=== PATIENT | male | born 1960 | race Caucasian/White ===

== ENCOUNTER → 2017-08-30 | Day surgery (SDC) | payer OTHER, MEDICAID ==
[~2017-08-30] MED LIST: ASPIRIN325 PO; CARDIZEM CD240 MG PO; CEFUROXIME500 MG PO; CIPRO500 MG PO; CIPROFLOXACIN500 M1 PO; COLACE100 MG PO; FLAGYL500 MG PO; FLECAINIDE ACET50 M1 PO; FLEXERIL PO; FLOMAX0.4 MG PO; HYDROCODON-ACE1 EAC7 PO; HYDROCODONE-AP1 EAC6 PO; IBUPROFEN 800800 M1; LISINOPRIL1 GM PO; LISINOPRIL10 MG PO; MIRALAX17 GM PO; NORCO 5-325 TA1 EACH PO; PERCOCET 7.5-31 EACH PO; PRILOSEC 20 MG20 MG PO; PROBIOTIC1 EAC1 PO; PROVENTIL; SINGULAIR 10 MG10 M1 PO; SPIRIVA INH; SYMBICORT160 MCG/4. INH; SYMBICORT80 MCG/4.1 INH; TRAZODONE HCL50 MG PO; VENTOLIN HFA 1818 GM INH; VENTOLIN HFA INH8 GM INH; VERAMYST10 GM NS; ZOFRAN ODT4 MG PO; ZOFRAN4 MG PO
[2017-08-30 12:36] LABS: HEMATOCRIT 45.1 % (42.0-52.0); HEMOGLOBIN 15.2 gm/dL (14.0-18.0); MCH 31.4 pg (26.0-34.0); MCHC 33.6 g/dL (28.0-37.0); MCV 93.3 fL (80.0-100.0); RBC 4.83 mil/uL (4.50-6.00); RDW-CV 13.8 % (10.5-14.5); WBC 8.5 thou/uL (4.0-11.0)
[2017-08-30 12:41] LABS: CALCIUM 8.9 mg/dL (8.5-10.1); CREATININE 1.3 mg/dL (0.6-1.3); POTASSIUM 3.6 mmol/L (3.5-5.1)
--- NOTE | 2017-08-30 15:39 | EKG ---
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1960 Requested By: Rita Johnson Order Number: [id number] Tano MD: Camden Kapadia Measurements Intervals [place] Rate: 65 P: 72 TN: 179 QRS: -20 QRSD: 98 T: 44 QT: 380 QTc: 396 Interpretive Statements Sinus rhythm Borderline left axis deviation Baseline wander in lead(s) V2 Compared to ECG 07/10/2016 16:21:08 No significant changes Electronically Signed On 08-30-2017 15:39:13 CHAINSTITCH ELASTIC ATTACHER by Camden Kapadia [email or web address] <ELECTRONICALLY SIGNED> By: Camden Kapadia MD, LOCATED WITHIN [facility] 08/30/17 1539 1211 10 Camden Kapadia MD, LOCATED [facility] /EPI
--- NOTE | 2017-09-01 11:46 | OP ---
[address] [address] OPERATIVE REPORT Name: KYRA CARVAJAL SR Room: [facility]#: [id number] Admission: 08/30/17 Attend Phys: Rita Johnson DO Discharge: Date of : 60 Report #: [id number] THIS REPORT FOR: //name// CC: Adam Johnson DATE OF SERVICE: 08/30/2017 PREOPERATIVE DIAGNOSES: Recurrent lipoma, left inner thigh and new right anterior medial mid forearm lipoma. POSTOPERATIVE DIAGNOSES: Recurrent lipoma, left inner thigh and new right anterior medial mid forearm lipoma. FINDINGS: Left thigh lipoma measured 9.5 x 6.5 x 3 cm. The incision was 8 x 4 x 2 cm. Forearm lipoma measured 2 x 1 x 0.5 cm. Right forearm incision measured 2 x 0.5 x 0.3 cm, depth of dissection for both the subcutaneous tissue. SURGEON: Rita Johnson DO. COSURGEON: Tyrell Terry, PGY1 and Epifanio Boone, PGY-1. DIGITAL MEDIA ANALYST: Corky Lynn MS3. OPERATION PERFORMED: Excision of lipoma x 2. ANESTHESIA: LMA and local. ESTIMATED BLOOD LOSS: 5 mL. DRAINS: None. SPECIMEN: Lipomas x 2. CONDITION: Stable. DISPOSITION: PACU to home. HISTORY OF PRESENT ILLNESS: The patient is a very pleasant 57-year-old gentleman who presented to my office with a complaint of a new lipoma on his right forearm and a recurrent lipoma on his left thigh. They were both causing him pain and were growing rapidly. He was then consented for excision. Risks discussed included bleeding, infection, pain, scar formation, recurrence and risks of anesthesia. The patient understood these risks and elected to proceed. DESCRIPTION OF PROCEDURE: The patient was brought [place] [address] OPERATIVE REPORT Name: KYRA CARVAJAL SR Room: [facility]#: [id number] Admission: 08/30/17 Attend Phys: Rita Johnson DO Discharge: Date of : 60 Report #: [id number] was laid supine on the operating room table. SCDs were placed on bilateral lower extremities. Ancef was given in the perioperative period. General LMA anesthesia was induced by Anesthesia without difficulty. The patient was placed in stirrups left thigh and right forearm were prepped and draped in standard sterile fashion. Timeout was performed to verify the patient and procedure. A 10 mL of 0.5% Marcaine were injected over both lipomas. On the right forearm, a 2 cm incision was made using 15 blade. Cautery was used for hemostasis. The lipoma was encountered directly under the skin. It was dissected free using a combination of blunt and cautery dissection, that dissection was subcutaneous tissue. Specimen measured 2 x 1 x 0.5 cm. It was then handed off. Hemostasis was assured. Wound was closed in a layered fashion using deep and superficial stitches of 3-0 Vicryl in inverted interrupted fashion. Skin was closed with a running 4-0 Monocryl. We then turned our attention to the left thigh and an 8 x 4 cm elliptical incision was made in the area of the palpable lipoma. Care was taken to include the previous incision. Cautery was used for hemostasis. Lipoma was again encountered directly under the skin. It was dissected free using a combination of blunt and cautery dissection. Depth of dissection was subcutaneous tissue. The mass was handed off. It measured 9.5 x 6.5 x 3 cm. Hemostasis was assured. Wound was then closed in a layered fashion using deep and superficial stitches of 3-0 Vicryl in inverted interrupted fashion. Skin was closed with running 4-0 Monocryl. A total of 30 mL of 0.5% Marcaine were used to anesthetize the wounds. Wounds were then cleansed and covered with Mastisol, Steri-Strips, 4 x 4's, and a Tegaderm. The patient was then allowed to awake from anesthesia, was extubated and transported to the recovery room with no further difficulties. Counts were correct at the conclusion of the case. <ELECTRONICALLY SIGNED> By: Rita Johnson DO 09/01/17 1146 1453 1551Cchanell Johnson DO /nt
--- NOTE | 2017-09-03 15:35 | S ---
[place] [address] SURGICAL PATH RPT PROCEDURE Name: KYRA CABRERA Room: [facility]#: [id number] Admission: 08/30/17 Date of : 60 Discharge: Report #: [id number] Path Case #: [id number] PATHOLOGY REPORT COLLECTION DATE: 08/30/2017 RECEIVED DATE: 08/31/2017 SUBMITTING PHYS: Dr. Rita Johnson OTHER PHYS: Dr. Adam Dixon SPECIMEN(S) RECEIVED: A.Right forearm mass/lipoma B.Left posterior thigh mass/lipoma * * * * * * * * * * * * FINAL DIAGNOSIS: A. Fibroadipose tissue "right forearm mass/lipoma": - Lobulated fibroadipose tissue consistent with a lipoma. B. Fibroadipose tissue "left posterior thigh mass/lipoma": - Mature lobulated fibroadipose tissue consistent with a lipoma. - Focal fat necrosis. COMMENT: This case is also reviewed by Dr. Vannessa Salgado (SHA:pit; 09/03/2017) PATHOLOGIST: Fabian Byrne M.D. REPORT ELECTRONICALLY SIGNED BY: Fabian Byrne M.D. DATE/TIME: 09/03/2017 15:34 * * * * * * * * * * * * GROSS PATHOLOGY: A. Received in formalin labeled "Kyra Cabrera, right forearm mass" and consists of a thinly encapsulated, oval, glistening, and yellow orange fragment of fat measuring 2.0 x 1.0 x 0.6 cm. The specimen is serially transversely sectioned and entirely submitted as A1. B. Received in formalin labeled "Kyra Cabrera, left posterior thigh mass" and consists of a lobulated, thinly encapsulated, glistening, and yellow orange fatty mass measuring 8.0 x 6.0 x 4.2 cm. There is a segment of cobb skin at one surface measuring 5.5 x 1.7 cm. The skin surface shows a possible cicatrix. The fatty mass is inked and sectioning reveals possible and minimal focal fat necrosis deep to the epidermis. The remaining cut surfaces are glistening, yellow orange, and lobulated. Certified Scrum Master sections are submitted B1-B6. (ASHLEE; 08/31/2017) CLINICAL HISTORY: [place] [address] SURGICAL PATH RPT PROCEDURE Name: KYRA CABRERA Room: [facility]#: [id number] Admission: 08/30/17 Date of : 60 Discharge: Report #: [id number] Path Case #: [id number] Mass on left thigh and right forearm INITIAL CPT CODE(S): A; 20945 B; 08244 Professional services performed by [facility] at [address] [address] Technical services performed by [facility] at [address] [place] [address]., [address] [address]. [facility] [address] [address] PHONE: [phone] DIRECTOR: Ata Mejia M.D. * * * END OF REPORT * * *
== END | disposition home or self-care (01) ==
LOC: M.SUR 09:07
PROVIDERS: Surgery
DX: D17.24 Benign lipomatous neoplasm of skin and subcutaneous tissue of left leg (principal); D17.21 Benign lipomatous neoplasm of skin and subcutaneous tissue of right arm; Z88.0 Allergy status to penicillin; Z88.6 Allergy status to analgesic agent; Z88.8 Allergy status to other drugs, medicaments and biological substances; Z79.891 Long term (current) use of opiate analgesic; Z79.899 Other long term (current) drug therapy

== ENCOUNTER 2018-05-23 08:32 | Inpatient (IN) | payer OTHER, MEDICAID ==
[~2018-05-23] VITALS: Ht 175.3 cm; Wt 101.6 kg
[2018-05-23 08:39] VITALS: BP 141/79
[2018-05-23] MEDS ORDERED: PROAIR HFA8.5 GM (08:58)
[2018-05-23] MEDS ORDERED: TRAZODONE HCL50 MG PO (08:58)
[2018-05-23 09:27] LABS: HEMATOCRIT 46.6 % (42.0-52.0); HEMOGLOBIN 15.4 gm/dL (14.0-18.0); MCH 31.1 pg (26.0-34.0); MCHC 33.1 g/dL (28.0-37.0); MPV 8.7 fl. (7.2-11.1); NUCLEATED RBCS 0 /100WBC; PLATELET COUNT* 321 thou/uL (150-400); RBC 4.96 mil/uL (4.50-6.00); RDW-CV 13.7 % (10.5-14.5); WBC 11.2 thou/uL (4.0-11.0)
[2018-05-23 09:42] LABS: ANION GAP 12 mmol/L (7-16); BUN 15 mg/dL (7-18); CALCIUM 9.3 mg/dL (8.5-10.1); CHLORIDE 100 mmol/L (98-107); CO2 24 mmol/L (21-32); CREATININE 1.3 mg/dL (0.6-1.3); GLUCOSE 99 mg/dL (70-99); POTASSIUM 3.7 mmol/L (3.5-5.1); SODIUM 136 mmol/L (136-145)
[2018-05-23 09:50] LABS: ALKALINE PHOSPHATASE 68 U/L (46-116); SGOT 20 U/L (15-37); SGPT 25 U/L (30-65); TOTAL BILIRUBIN 0.4 mg/dL (<0.1-1.0); TOTAL PROTEIN 7.9 g/dL (6.4-8.2); TROPONIN-I LEVEL <0.06 ng/mL (<0.06)
[2018-05-23 09:53] LABS: ABSOLUTE EOSINOPHILS 1.1 thou/uL (0.0-0.7); ABSOLUTE LYMPHOCYTES 3.7 thou/uL (0.8-5.3); ABSOLUTE MONOCYTES 1.1 thou/uL (0.0-1.2); ABSOLUTE NEUTROPHILS 5.3 thou/uL (1.6-8.1); ANISOCYTOSIS 1+; PLATELET ESTIMATE ADEQUATE; POIKILOCYTOSIS 1+
[2018-05-23 10:02] LABS: APTT 26.7 Seconds (25.0-31.3); PROTIME 10.3 Seconds (9.20-11.50)
[2018-05-23 10:38] LABS: BE -1.7 mmol/L (-2 to +3); HCO3 21.3 mmol/L (22.0-26.0); PCO2 31.8 mmHg (35.0-45.0); PO2 85.9 mmHg (75.0-100.0); pH 7.444 (7.340-7.450)
[2018-05-23 13:00] VITALS: BP 137/82
[2018-05-23 15:53] VITALS: BP 129/66
--- NOTE | 2018-05-23 17:08 | NUR ---
PT ARRIVED ON UNIT AT 1311. PT AMBULATED TO BED WITH CANE AND NO DIFFICULTY. PT ON ROOM AIR. VSS. ADMISSION COMPLETE. CARDIOLOGY SAW PT, FIRST PART OF STRESS TEST DONE TODAY. PT TO BE NPO AFTER MIDNIGHT WITH NO CAFFIENE. WILL CONTINUE TO MONITOR.
[2018-05-23 20:00] VITALS: BP 137/81
[2018-05-24] VITALS: BP 126/72
[2018-05-24 04:00] VITALS: BP 124/73
--- NOTE | 2018-05-24 04:31 | NUR ---
ASSUMED PT CARE @ 193. A+O X4. PT GIVEN TYLENOL FOR RIB PAIN W COUGH. EFFECTIVE. NPO @ MIDNIGHT FOR CARDIOLOGY CONSULT IN AM. NO OTHRE CONCERNS REPORTED. SEE CHARTING AND EMAR. CALL LIGHT AT BEDSIDE. HOURLY ROUNDING FOR SAFETY.
[2018-05-24 05:09] LABS: ABSOLUTE LYMPHOCYTES 0.9 thou/uL (0.8-5.3); ABSOLUTE MONOCYTES 0.2 thou/uL (0.0-1.2); BASOPHILS 0.2 %; HEMATOCRIT 46.1 % (42.0-52.0); HEMOGLOBIN 15.3 gm/dL (14.0-18.0); LYMPHOCYTES 4.5 %; MCHC 33.2 g/dL (28.0-37.0); MCV 93.4 fL (80.0-100.0); MONOCYTES 0.8 %; MPV 8.5 fl. (7.2-11.1); NUCLEATED RBCS 0 /100WBC; PLATELET COUNT* 327 thou/uL (150-400); POLYS 94.5 %; RBC 4.93 mil/uL (4.50-6.00); RDW-CV 13.3 % (10.5-14.5)
[2018-05-24 05:27] LABS: CALCIUM 9.6 mg/dL (8.5-10.1); CREATININE 1.5 mg/dL (0.6-1.3)
--- NOTE | 2018-05-24 06:50 | NUR ---
PT C/O CHEST/RIB DISCOMFORT W COUGH AND POSTION CHANGE. PT ALSO C/O "R JAW PAIN FOR 4-5 SECONDS," R HEAD PAIN AND R EYE BLURRY VISION. PT ALSO REPORTED HE USUALLY DRINKS 6 10CUP POTS OF COFFEE A DAY AND HASNT HAD ANY CAFFINE IN 24+ HRS. NOTIFIED CHARGE NURSE AND DAY SHIFT NURSE. AND INSTRUCTED PATIENT TO NOTIFY DR TODAY. PT DENIED STROKE SYMPTOMS AND NONE OBSERVED.
--- NOTE | 2018-05-24 07:15 | NUR ---
ASSUMED CARE OF PT ASSESSED AND DOCUMENTED. PT ON CARDIAC MONITER TRACING ST HR 122. PT IS A&O WITH NO C/O PAIN. WSS WNL. PT IS ON FALL PRECAUTIONS PER FACILITY PROTOCOL. PT IS AFEBRILE AND OM ROOM AIR. BED IS IN LOW POSTION CALL LIGHT IS IN REACH. PT IS NPO FOR TESTING.
[2018-05-24 08:00] VITALS: BP 118/77
--- NOTE | 2018-05-24 09:28 | 2DMMODE ---
[place] [address] 2 D/M-MODE ECHOCARDIOGRAM Name: KYRA CARVAJAL Celina ZAMBRANO Room: [address] IN [facility]#: [id number] Admission: 05/23/18 Attend Phys: Maynor Munguia, Discharge: Date of : 60 Date of Service: 05/24/18 0927 Report #: [id number] THIS REPORT FOR: //name// APPROVED REPORT Study performed: 05/23/2018 15:14:06 EXAM: Comprehensive 2D, Doppler, and color-flow Echocardiogram Patient Location: In-Patient Room #: 200 Status: routine BSA: 2.18 HR: 71 bpm BP: 137/82 mmHg Rhythm: NSR Other Information Study Quality: Good 2D Dimensions IVSd: 11.42 (7-11mm) LVOT Diam: 19.72 (18-24mm) LVDd: 44.28 mm PWd: 10.02 (7-11mm) Ascending Ao: 28.04 (22-36mm) LVDs: 26.36 (25-40mm) Aortic Root: 30.28 mm Volumes Left Atrial Volume (Systole) LA ESV Index: 13.30 mL/m2 Aortic Valve AoV Peak Lei.: 1.42 m/s AO Peak Gr.: 8.04 mmHg LVOT Max P.04 mmHg AO Mean Gr.: 4.46 mmHg LVOT Mean P.76 mmHg LVOT Max V: 1.42 m/s AO V2 VTI: 25.23 cm LVOT Mean V: 0.89 m/s TYRON (VTI): 3.09 cm2 LVOT V1 VTI: 25.56 cm Mitral Valve E/A Ratio: 1.21 MV Decel. Time: 223.77 ms MV E Max Lei.: 0.76 m/s MV PHT: 64.89 ms MVA (PHT): 3.39 [place]2 [place] [address] 2 D/M-MODE ECHOCARDIOGRAM Name: KYRA CARVAJAL Room: [address] IN ..#: [id number] Admission: 05/23/18 Attend Phys: Maynor Munguia, Discharge: Date of : 60 Date of Service: 05/24/18 0927 Report #: [id number] TDI E/Lateral E': 5.43 E/Medial E': 6.91 Medial E' Lei.: 0.11 m/s Lateral E' Lei.: 0.14 m/s Pulmonary Valve PV Peak Lei.: 2.00 m/s PV Peak Gr.: 15.97 mmHg Left Ventricle The left ventricle is normal size. There is normal LV segmental wall motion. There is normal left ventricular wall thickness. Left ventricular systolic function is normal. The left ventricular ejection fraction is within the normal range. LVEF is 60%. The left ventricular diastolic function is normal. Right Ventricle The right ventricle is normal size. The right ventricular systolic function is normal. Atria The left atrium size is normal. The right atrium size is normal. Aortic Valve The aortic valve is normal in structure. No aortic regurgitation is present. There is no aortic valvular stenosis. Mitral Valve The mitral valve is normal in structure. There is no mitral valve regurgitation noted. No evidence of mitral valve stenosis. Tricuspid Valve The tricuspid valve is normal in structure. Unable to assess PA pressure. Trace tricuspid regurgitation. Pulmonic Valve The pulmonary valve is normal in structure. There is no pulmonic valvular regurgitation. Great Vessels The aortic root is normal in size. IVC is normal in size and collapses >50% with inspiration. Pericardium There is [place] [address] 2 D/M-MODE ECHOCARDIOGRAM Name: KYRA CARVAJAL Room: [address] [place] [facility]#: [id number] Admission: 05/23/18 Attend Phys: Maynor Munguia, Discharge: Date of : 60 Date of Service: 05/24/18 0927 Report #: [id number] <Conclusion> The left ventricle is normal size. There is normal left ventricular wall thickness. Left ventricular systolic function is normal. The left ventricular ejection fraction is within the normal range. LVEF is 60%. The left ventricular diastolic function is normal. The right ventricle is normal size. The left atrium size is normal. The aortic valve is normal in structure. The mitral valve is normal in structure. The tricuspid valve is normal in structure. IVC is normal in size and collapses >50% with inspiration. There is no pericardial effusion. There is normal LV segmental wall motion. <ELECTRONICALLY SIGNED> By: Brennon Schrader MD, FACC 05/24/18926 6 6 Brennon Schrader MD, FACC /INF
[2018-05-24 12:00] VITALS: BP 118/75
--- NOTE | 2018-05-24 15:36 | NUR ---
Pt is A&O. Resides at home with his . Independent with ADLs. Pt has a walker and cane that he can use for mobility. Hx of [facility]. No hx of skilled. Goal is [place] at [place], following for disposition.
[2018-05-24 16:00] VITALS: BP 145/75
--- NOTE | 2018-05-24 16:44 | CARDNUC ---
[place] [address] CARDIAC NUCLEAR IMAGING REPORT Name: SUNDAYXUANKYRAMALACHI Patrick SR Room: [address] IN [facility]#: [id number] Admission: 05/23/18 Attend Phys: Maynor Munguia, Discharge: Date of : 60 Date of Service: 05/24/18 1644 Report #: [id number] THIS REPORT FOR: //name// APPROVED REPORT Imaging Protocol: Rest Tc-99m/Stress Tc-99m 2 days Study performed: 05/23/2018 13:44:00 Indication: Chest pain, Atrial Fibrillation Patient Location: In-Patient Room #: 200 Stress Tech: Seema Yusuf Stress Nurse: Terrie Ricardo RN NM Tech:CARMEL Clemons Ht: 5 ft 9 in Wt: 228 lbs BSA: 2.18 m2 BMI: 33.66 Medical History Medical History: a fib, hypertension Medications: diltiazem, lisinopril, enoxaparin Allergies: penicillin, codeine, tramadol Cardiac Risk Factors: age, hypertension, family hx Previous Cardiac Procedures: none Exercise History: Indeterminate Resting Data Rest SPECT myocardial perfusion imaging was performed in supine position 30 minutes following the intravenous injection of 42.0 mCi of Tc-99m Sestamibi. Time of rest injection: 1350 Date: 05/23/2018 Time of rest imagin The images were gated to evaluate regional wall motion and calculate left ventricular ejection fraction. Administration Route: IV Pharmacologic Stress Pharmacologic stress test was performed by injecting Regadenoson 0.4 mg IV push over 10-15 seconds immediately followed by the intravenous injection of 36.8 mCi of Tc-99m Sestamibi. Time of stress injection: 0955 Date: 05/24/2018 Time of stress imagin Administration Route: IV Gated Stress SPECT was performed 40 minutes after [place] [address] CARDIAC NUCLEAR IMAGING REPORT Name: KYRA CARVAJAL Room: [address]#: [id number] Admission: 05/23/18 Attend Phys: Maynor Munguia, Discharge: Date of : 60 Date of Service: 05/24/18 1644 Report #: [id number] The images were gated to evaluate regional wall motion and calculate left ventricular ejection fraction. Prone imaging was performed. Stress Test Details Stress Test: Pharmacologic stress testing performed using 0.4 mg of regadenoson per 5 mL given IV over 10 seconds. Reason for pharmacologic stress test: physical limitation. HR Max Heart Rate (APMHR): 163 bpm Resting HR: 120 bpm Target HR (85% APMHR): 138 bpm Max HR Achieved: 129 bpm % of APMHR: 79 Recovery HR: 114 bpm HR response to stress: Normal HR response to stress BP Resting BP: 106/65 mmHg Max BP: 114/72 mmHg Recovery BP: 122/69 mmHg BP response to stress: Normal blood pressure response to stress. ECG Resting ECG: nsr poor R wave progression Stress ECG: Sinus Rhythm ST Change: none Recovery ECG: NSR no stt abn Recovery ST Change: None Clinical Reason for Termination: Completed protocol Stress Symptoms: None Exercise duration: 0 min sec Exercise capacity: 1 METs Nurse Comments pt given an 500 bolus of normal saline for low bp. Pt unable to walk on treadmill due to generalized weakness Stress ECG Conclusion negative Study Quality Study: Good Artifact: [place] [address] CARDIAC NUCLEAR IMAGING REPORT Name: KYRA CARVAJAL Room: [address]#: [id number] Admission: 05/23/18 Attend Phys: Maynor Munguia, Discharge: Date of : 60 Date of Service: 05/24/18 1644 Report #: [id number] Perfusion Review of rest data reveals normal perfusion, without perfusion defects.Imaging obtained following vasodilator stress demonstrate a similar, uniform uptake of tracer without defects. Prone imaging was normal. LVEDV is normal.No segental wall motion abnormality seen. Images were reviewed using [employer]. Wall Motion normal all segments Nuclear Conclusion ECG Findings: negative for ischemia Clinical Findings: negative for ischemia Nuclear Findings: negative for ischemia Exercise Capacity: not assessed Left Ventricular Function: normal Risk Study: low Negative perfusion nuclear stress test for ischemia /infarct. Normal LV function <Conclusion> negative <ELECTRONICALLY SIGNED> By: Jose Mccormick MD, FACC 05/24/181643 43 43 Jose Mccormick MD, FACC /INF
--- NOTE | 2018-05-24 17:26 | NUR ---
PT HAS RESTED IN HIS ROOM AND VISITED WITH FAMILY. HE HAS HAD NO C/O PAIN OR DISCOMFORT. PT HAD A STRESS TEST WHICH CARDIO NURSE AYLA REPORTED NORMAL AND SHE HAS SIGNED OFF. PT HAS HAD NO S OR SX OF ADVERSE REACTION TO ABT, EDUCATION GIVEN. HOURLY ROUNDING COMPLETE.
[2018-05-24 19:30] VITALS: BP 119/63
[2018-05-25 00:40] VITALS: BP 126/62
[2018-05-25 04:29] VITALS: BP 138/87
[2018-05-25 04:46] LABS: ABSOLUTE LYMPHOCYTES 1.7 thou/uL (0.8-5.3); ABSOLUTE MONOCYTES 1.7 thou/uL (0.0-1.2); ABSOLUTE NEUTROPHILS 25.9 thou/uL (1.6-8.1); BASOPHILS 0.1 %; HEMATOCRIT 43.8 % (42.0-52.0); HEMOGLOBIN 14.5 gm/dL (14.0-18.0); LYMPHOCYTES 5.8 %; MONOCYTES 5.8 %; MPV 8.3 fl. (7.2-11.1); NUCLEATED RBCS 0 /100WBC; PLATELET COUNT* 352 thou/uL (150-400); POLYS 88.3 %; RBC 4.66 mil/uL (4.50-6.00); RDW-CV 13.7 % (10.5-14.5); WBC 29.3 thou/uL (4.0-11.0)
[2018-05-25 04:54] VITALS: BP 115/61
[2018-05-25 05:02] LABS: ALBUMIN 3.9 g/dL (3.4-5.0); CALCIUM 9.1 mg/dL (8.5-10.1); CREATININE 1.4 mg/dL (0.6-1.3); POTASSIUM 4.8 mmol/L (3.5-5.1); TOTAL BILIRUBIN 0.4 mg/dL (<0.1-1.0); TOTAL PROTEIN 7.5 g/dL (6.4-8.2)
--- NOTE | 2018-05-25 06:54 | NUR ---
VITALS WNL. PT HAD X3 EMISIS THROUGH THE NIGHT, MEDICATION GIVEN STATUS IMPROVED. SEE. MAR. SEE CHARTING. FALL PRECAUTIONS IN PLACE. HOURLY ROUNDING FOR SAFETY.
--- NOTE | 2018-05-25 07:15 | NUR ---
CHANGE OF SHIFT BEDSIDE REPORT GIVEN PATIENT SEEN IN BED WATCHING TV ASSUMED APTIENT CARE
[2018-05-25 08:00] VITALS: BP 135/78
[2018-05-25] MEDS ORDERED: PROTONIX40 M1 PO (11:17)
[2018-05-25] MEDS ORDERED: DOXYCYCLINE 10100 MG PO (11:29)
[2018-05-25] MEDS ORDERED: PREDNISONE 10 M10 MG PO (11:31)
[2018-05-25 11:59] VITALS: BP 115/71
--- NOTE | 2018-05-25 13:30 | NUR ---
DISCHARGE TO HOME ALL DC INSTRUCTIONS GIVEN AND ACKNOWLEDGED AND SIGNED COPIES GIVEN IV AND HEART MONITOR REMOVED PERSONAL BELONGINGS RETURNED ASSISTED OUT VIA WC GOOD CONDITION TO WAITING CAR
== END 2018-05-25 13:30 | disposition home or self-care (01) | DRG 177 ==
LOC: M.ERS 08:32 → M.2W 12:06 → M.TBA-ER 12:06 → M.2W 13:11
PROVIDERS: Personal Emergency Response Attendant; ADMIT Internal Medicine
DX: J15.6 Pneumonia due to other Gram-negative bacteria (principal); I50.31 Acute diastolic (congestive) heart failure; J44.1 Chronic obstructive pulmonary disease with (acute) exacerbation; J44.0 Chronic obstructive pulmonary disease with (acute) lower respiratory infection; J20.9 Acute bronchitis, unspecified; Z96.652 Presence of left artificial knee joint; I48.2 Chronic atrial fibrillation; Z90.49 Acquired absence of other specified parts of digestive tract; Z98.42 Cataract extraction status, left eye; Z98.41 Cataract extraction status, right eye; Z88.6 Allergy status to analgesic agent; Z88.0 Allergy status to penicillin; Z88.8 Allergy status to other drugs, medicaments and biological substances; Z83.6 Family history of other diseases of the respiratory system; Z87.891 Personal history of nicotine dependence

== ENCOUNTER → 2019-10-02 | Outpatient (CLI) | payer OTHER, MEDICAID ==
[~2019-10-02] MED LIST changes: +DOXYCYCLINE 10100 MG PO; +PREDNISONE 10 M10 MG PO; +PROAIR HFA8.5 GM; +PROTONIX40 M1 PO
[2019-10-02 16:52] LABS: CALCIUM 8.7 mg/dL (8.5-10.1); CREATININE 1.1 mg/dL (0.6-1.3)
== END ==
LOC: M.LAB 15:21
PROVIDERS: Internal Medicine Pulmonary Disease
DX: J98.4 Other disorders of lung (principal); I50.9 Heart failure, unspecified

== ENCOUNTER → 2020-08-24 | Outpatient (CLI) | payer OTHER, MEDICAID ==
[~2020-08-24] MED LIST changes: +BREZTRI AEROS10.7 GM INH; +OMEPRAZOLE40 MG PO; +[UNRECOGNIZED DRUG - REMARK] INH
[2020-08-24 10:19] LABS: HEMATOCRIT 43.9 % (42.0-52.0); HEMOGLOBIN 14.7 gm/dL (14.0-18.0); MCH 32.4 pg (26.0-34.0); MCHC 33.6 g/dL (28.0-37.0); MCV 96.5 fL (80.0-100.0); MPV 7.7 fl. (7.2-11.1); RBC 4.54 mil/uL (4.50-6.00); RDW-CV 13.3 % (10.5-14.5); WBC 11.3 thou/uL (4.0-11.0)
[2020-08-24 10:47] LABS: ALBUMIN 4.1 g/dL (3.4-5.0); CALCIUM 9.1 mg/dL (8.5-10.1); CREATININE 1.1 mg/dL (0.6-1.3); POTASSIUM 3.9 mmol/L (3.5-5.1); TOTAL BILIRUBIN 0.2 mg/dL (<0.1-1.0); TOTAL PROTEIN 7.1 g/dL (6.4-8.2)
--- NOTE | 2020-08-24 12:51 | EKG ---
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
== END ==
LOC: M.LAB 10:00
PROVIDERS: ATTEND Orthopaedic Surgery
DX: Z01.812 Encounter for preprocedural laboratory examination (principal); Z20.822 Contact with and (suspected) exposure to COVID-19; M17.11 Unilateral primary osteoarthritis, right knee; R00.1 Bradycardia, unspecified

== ENCOUNTER 2020-08-31 07:18 | Observation (INO) | payer OTHER, MEDICAID ==
[~2020-08-31] VITALS: Ht 177.8 cm; Wt 84.4 kg
[2020-08-31 19:50] VITALS: BP 166/82
[2020-09-01] VITALS: BP 136/74
[2020-09-01 04:42] LABS: HEMATOCRIT 38.6 % (42.0-52.0); MCH 32.3 pg (26.0-34.0); MCHC 33.6 g/dL (28.0-37.0); MPV 8.2 fl. (7.2-11.1); RBC 4.02 mil/uL (4.50-6.00); RDW-CV 13.2 % (10.5-14.5); WBC 14.2 thou/uL (4.0-11.0)
[2020-09-01 04:53] LABS: CALCIUM 9.1 mg/dL (8.5-10.1); POTASSIUM 3.7 mmol/L (3.5-5.1)
[2020-09-01] MEDS ORDERED: MEDROLDOSEPACK PO (06:36)
--- NOTE | 2020-09-01 07:01 | OP ---
[address] [address] OPERATIVE REPORT Name: KYRA CARVAJAL Celina ZAMBRANO Room: [address] Surjit#: [id number] Admission: 08/31/20 Attend Phys: Rogers Holloway Discharge: Date of : 60 Report #: [id number] THIS REPORT FOR: cc: Adam Dixon MD, Anthony MD ~ Ghulam Amin DO DICTATED BY: Kyra Jessica DO DATE OF SERVICE: 08/31/2020 PREOPERATIVE DIAGNOSIS: End-stage right knee degenerative joint disease. POSTOPERATIVE DIAGNOSIS: End-stage right knee degenerative joint disease. PROCEDURE: Right total knee arthroplasty with Yadi Persona total knee system with the following sizes: 1. Size 9 cruciate retained cemented femur. 2. A size F cemented tibia. 3. A size 12 medial congruent poly. 4. A 35 mm all poly patella. 5. Two bags of Biomet cement. SURGEON: Ghulam Amin DO ELECTRICAL TIMING DEVICE CALIBRATOR: Kyra Jessica DO ANESTHESIA: General and regional pain block by Anesthesia. FLUIDS: Crystalloid per Anesthesia. ESTIMATED BLOOD LOSS: 100 mL. DRAINS: None. SPECIMENS: None. COMPLICATIONS: None. CONDITION: Stable to PACU. DISPOSITION: Recovery in the PACU and transferred to the floor. ANTIBIOTICS: 2 grams Ancef IV preop. TOURNIQUET: Approximately 20 minutes at 300 mmHg during cementation. [address] [address] OPERATIVE REPORT Name: KYRA CARVAJAL SR Room: [address] Surjit#: [id number] Admission: 08/31/20 Attend Phys: Rogers Holloway Discharge: Date of : 60 Report #: [id number] INDICATIONS FOR PROCEDURE: The patient is a very pleasant 60-year-old male who presented to our clinic with right knee pain. He had a prior arthroscopic surgery. He had been evaluated previously and was found to have degenerative joint disease. His pain was significantly affecting his activities of daily living. He failed conservative measures including activity modification, medications and injections. We discussed right total knee arthroplasty. Risks, benefits, alternatives and possible complications were discussed at length including but not limited to infection, need for repeat surgery, neurovascular injury, DVT, PE, anesthetic complications, IN, and . He was understanding and wished to proceed. DESCRIPTION OF PROCEDURE: The patient was met in the preoperative area. He consented both verbally and written. The correct site was marked. He was given a regional block by Anesthesia preoperatively. He was then transferred to the operative suite and placed supine on the operative table. He was given benefit of general anesthesia. A well-padded nonsterile tourniquet was applied to the right thigh. The right lower extremity was then prepped and draped in the usual sterile fashion. A timeout was performed to identify the correct patient, procedure and operative site. All in the room were in agreement. The procedure began with a standard anterior midline incision. This was carried down to the level of the capsule, at which point a new knife was used to create a medial parapatellar arthrotomy. The patella was then everted. We used the drill to gain access to the intramedullary canal for the femur and placed the intramedullary femoral cutting guide. We then made the distal femur cut adding a 2 mm to the cut. We then turned our attention to the proximal tibial cut where we used the extramedullary tibial guide. We dialed in the appropriate amount of slope and alignment in the coronal position. The cutting block was pinned into place and the proximal tibial cut was made, protecting the ligaments and neurovascular structures. We then used the AP sizer to size the femur to a size 9. The size 9 cutting block was then placed and the anterior, posterior and chamfer cuts were then made without difficulty. Excess bone was removed. We then removed the medial and lateral menisci and released the ACL and PCL. The patient was found to have equal flexion and extension gaps with a 10 spacer block. We then placed a trial tibia and used 2 screws to secure this into place with the appropriate amount of rotation. The trial femur was then placed as well. We then trialled with a variety of articular spacers. Size 12 was found to have the best stability and ensured full extension and 130 degrees of flexion. We then turned our attention to the patellar resurfacing. We removed osteophytes with a rongeur and then reamed the posterior aspect of the patella. This was sized to a 35. The peg holes were then drilled. Trial patella was placed and was found to track well in the trochlear groove. The drill holes were then drilled through the femur. The trial femur and patellar poly were removed. We then drilled and punched for the tibial keel. The trial tibia was then removed. We thoroughly irrigated the bony ends. Cement was mixed on the [address] [address] OPERATIVE REPORT Name: KYRA CARVAJAL SR Room: [address] Rsos.#: [id number] Admission: 08/31/20 Attend Phys: Rogers Holloway Discharge: Date of : 60 Report #: [id number] back table and placed on the backside of the final components and on the bony ends. We malleted the final femur, tibia and patellar components. Excess cement was removed. We placed 12 trial tibial spacer for compression and allowed the cement to cure. We did this after elevating the tourniquet. Once the cement was hardened, the patient was still found to have good range of motion and stability with a size 12 spacer block. The trial was removed and we went with a size 12 medial congruent poly. He had excellent range of motion with full extension, 130 degrees of flexion and stability throughout range of motion including mid flexion and deep flexion. We injected orthopedic pain cocktail around the periosteum, capsule and soft tissues. Tourniquet was let down. We then reapproximated the capsule with #1 Vicryl in [id number] fashion. We reapproximated the subcutaneous tissue with 2-0 Monocryl suture in simple interrupted inverted fashion followed by running 3-0 subcuticular Stratafix. We then placed Dermabond glue and allowed this to dry. We then placed a sterile Mepilex dressing, SUKH hose and SCDs were applied. The patient tolerated the procedure well without complication. He was transferred to the PACU in stable condition. All needle and sponge counts were correct x 2 at the end of the case. ATTESTATION: Dr. Amin was present and scrubbed throughout all critical aspects of the case. <ELECTRONICALLY SIGNED> By: Ghulam Amin DO 09/01/20 0701 1227 DO osmani Taylor
[2020-09-01 08:33] VITALS: BP 126/72
[2020-09-01] MEDS ORDERED: ELIQUIS5 MG PO (08:52)
[2020-09-01 14:01] VITALS: BP 126/72
[2020-09-01 14:18] VITALS: BP 126/72
[2020-09-01 14:47] VITALS: BP 126/72
== END 2020-09-01 14:55 | disposition home health service (06) ==
LOC: M.PRE → M.TBA 07:59 → M.PRE 08:07 → M.TBA 12:13 → M.ORTHSURG 13:55
PROVIDERS: Family Medicine; Orthopaedic Surgery; ADMIT Internal Medicine; ATTEND Internal Medicine
DX: M17.11 Unilateral primary osteoarthritis, right knee (principal); I10 Essential (primary) hypertension; I48.0 Paroxysmal atrial fibrillation; J44.9 Chronic obstructive pulmonary disease, unspecified; G47.33 Obstructive sleep apnea (adult) (pediatric); K21.9 Gastro-esophageal reflux disease without esophagitis; Z86.73 Personal history of transient ischemic attack (TIA), and cerebral infarction without residual deficits; Z79.899 Other long term (current) drug therapy; Z79.01 Long term (current) use of anticoagulants

== ENCOUNTER → 2021-05-12 | Outpatient (CLI) | payer OTHER, MEDICAID ==
[~2021-05-12] MED LIST changes: +ELIQUIS5 MG PO; +MEDROLDOSEPACK PO
[2021-05-12 10:04] LABS: CHOLESTEROL 143 mg/dL (<200); HDL CHOLESTEROL 45 mg/dL (>40); LDL CHOLESTEROL 86 mg/dL (<100); TC:HDL 3.2 Ratio (Not establshd); TRIGLYCERIDE 64 mg/dL (<150); VLDL 13 mg/dL (<40)
[2021-05-12 10:32] LABS: SERUM ASSESSMENT Clear
== END ==
LOC: M.LAB 08:23
PROVIDERS: ATTEND Internal Medicine Cardiovascular Disease
DX: E78.5 Hyperlipidemia, unspecified (principal)